=== PATIENT | female | born 1985 | race Caucasian/White ===

== ENCOUNTER 2022-07-30 07:31 | Emergency (ER) | payer BC, OTHER ==
[2022-07-30 07:45] VITALS: BP 130/77; PULSE 90
== END 2022-07-30 08:08 | disposition home or self-care (01) ==
LOC: DL.ED 07:31
DX: T17.928A Food in respiratory tract, part unspecified causing other injury, initial encounter (principal); M94.0 Chondrocostal junction syndrome [Tietze]
CPT/HCPCS: 99283